=== PATIENT | female | born 1965 | race Hispanic/Latino ===

== ENCOUNTER 2021-06-10 14:50 | Emergency (ER) | payer MEDICARE ==
[2021-06-10 15:03] VITALS: BP 141/92
--- NOTE | 2021-06-10 15:24 | Emergency Department Report ---
ED Abdominal Pain HPI - General Chief Complaint: Abdominal Pain Stated Complaint: ABDOMINAL PAIN Time Seen by Provider: 06/10/21 15:17 Source: patient Mode of arrival: Ambulatory Limitations: No Limitations - History of Present Illness Initial Comments: This is a pleasant 55-year-old female who presents to the emergency department chief complaint of right upper quadrant abdominal pain with associated nausea and vomiting that has been present intermittently for the past 8 years. She reports she has been seen by her primary care doctor and had a CT scan in the past was apparently unremarkable. She has a surgical history of a cholecystectomy. She also has a history of hypertension, hyperlipidemia and diabetes. She reports the pain will radiate into her back and to the right lower chest. She has associated fever, chills, night sweats, headache, dizziness, blurry vision, hematemesis, melena, hematochezia diarrhea, weakness or any other associated symptoms. - Related Data Previous Rx's Medication Instructions Recorded Last Taken Type Acetaminophen/Codeine [Tylenol 1 tab PO Q6H PRN #12 tab 06/10/21 Unknown Rx /Codeine # 3 tab] Ciprofloxacin HCl 500 mg PO BID #20 tablet 06/10/21 Unknown Rx Promethazine [Phenergan SUPPOS] 25 mg UT Q6HR PRN #20 supp.rect 06/10/21 Unknown Rx metroNIDAZOLE [Flagyl] 500 mg PO Q8HR #30 tablet 06/10/21 Unknown Rx Allergies Allergy/AdvReac Type Severity Reaction Status Date / Time Penicillins Allergy Severe Swelling Verified 06/10/21 15:33 ED Review of Systems ROS: Stated complaint: ABDOMINAL PAIN Other details as noted in HPI Comment: All other systems reviewed and negative Constitutional: denies: chills, fever Eyes: denies: eye pain, eye discharge, vision change ENT: denies: ear pain, throat pain Respiratory: denies: cough, shortness of breath, wheezing Cardiovascular: as per HPI, chest pain. denies: palpitations Endocrine: no symptoms reported Gastrointestinal: as per HPI, abdominal pain, nausea, vomiting. denies: diarrhea Genitourinary: denies: urgency, dysuria, discharge Musculoskeletal: denies: back pain, joint swelling, arthralgia Skin: denies: rash, lesions Neurological: denies: headache, weakness, paresthesias Psychiatric: denies: anxiety, depression Hematological/Lymphatic: denies: easy bleeding, easy bruising ED Past Medical Hx - Past Medical History Previous Medical History?: Yes Hx Hypertension: Yes Hx Diabetes: Yes Additional medical history: Thyroid - Medications Home Medications: Home Medications Medication Instructions Recorded Confirmed Last Taken Type Acetaminophen/Codeine [Tylenol 1 tab PO Q6H PRN #12 tab 06/10/21 Unknown Rx /Codeine # 3 tab] Ciprofloxacin HCl 500 mg PO BID #20 tablet 06/10/21 Unknown Rx Promethazine [Phenergan SUPPOS] 25 mg UT Q6HR PRN #20 supp.rect 06/10/21 Unknown Rx metroNIDAZOLE [Flagyl] 500 mg PO Q8HR #30 tablet 06/10/21 Unknown Rx ED Physical Exam - General Limitations: No Limitations General appearance: alert, in no apparent distress - Head Head exam: Present: atraumatic, normocephalic - Eye Eye exam: Present: normal appearance, PERRL, EOMI Pupils: Present: normal accommodation - ENT ENT exam: Present: normal exam, normal orophraynx, mucous membranes moist - Neck Neck exam: Present: normal inspection, full ROM. Absent: tenderness, meningismus - Respiratory Respiratory exam: Present: normal lung sounds bilaterally. Absent: respiratory distress, wheezes, rales, rhonchi, stridor - Cardiovascular Cardiovascular Exam: Present: normal rhythm, tachycardia, normal heart sounds. Absent: systolic murmur, diastolic murmur, rubs, gallop - GI/Abdominal GI/Abdominal exam: Present: soft, tenderness (Tenderness to right upper quadrant, right lower quadrant and left lower quadrant, no rebound or guarding), normal bowel sounds. Absent: distended, guarding, rebound - Extremities Exam Extremities exam: Present: normal inspection, full ROM, normal capillary refill. Absent: tenderness, calf tenderness - Back Exam Back exam: Present: normal inspection, full ROM. Absent: tenderness, CVA tenderness (R), CVA tenderness (L) - Neurological Exam Neurological exam: Present: alert, oriented X3, normal gait - Psychiatric Psychiatric exam: Present: normal affect, normal mood - Skin Skin exam: Present: warm, dry, intact, normal color. Absent: rash ED Course Vital Signs 06/10/21 15:03 Temperature 98.1 F Pulse Rate 114 H Respiratory 24 Rate Blood Pressure 141/92 [Right] O2 Sat by Pulse 94 Oximetry ED Medical Decision Making - Lab Data Result diagrams: 06/10/21 15:26 06/10/21 15:26 Lab Results 06/10/21 06/10/21 06/10/21 Range/Units 15:26 15:26 15:26 WBC 4.7 (4.5-11.0) K/mm3 RBC 4.65 (3.65-5.03) M/mm3 Hgb 13.0 (10.1-14.3) gm/dl Hct 40.2 (30.3-42.9) % MCV 86 (79-97) fl MCH 28 (28-32) pg MCHC 32 (30-34) % RDW 15.9 H (13.2-15.2) % Plt Count 101 L (140-440) K/mm3 Lymph % (Auto) 32.0 (13.4-35.0) % [place]lan % (Auto) 7.8 H (0.0-7.3) % Eos % (Auto) 0.8 (0.0-4.3) % Baso % (Auto) 0.7 (0.0-1.8) % Lymph # (Auto) 1.5 (1.2-5.4) K/mm3 [place]lan # (Auto) 0.4 (0.0-0.8) K/mm3 Eos # (Auto) 0.0 (0.0-0.4) K/mm3 Baso # (Auto) 0.0 (0.0-0.1) K/mm3 Seg Neutrophils % 58.7 (40.0-70.0) % Seg Neutrophils # 2.8 (1.8-7.7) K/mm3 PT 15.6 H (12.2-14.9) Sec. INR 1.12 (0.87-1.13) APTT 32.0 (24.2-36.6) Sec. D-Dimer 264.67 H (0-234) ng/mlDDU Sodium 134 L (137-145) mmol/L Potassium 3.8 (3.6-5.0) mmol/L Chloride 96.9 L (98-107) mmol/L Carbon Dioxide 21 L (22-30) mmol/L Anion Gap 20 mmol/L BUN 20 H (7-17) mg/dL Creatinine 0.7 (0.6-1.2) mg/dL Estimated GFR > 60 ml/min BUN/Creatinine Ratio 29 % Glucose 371 H (65-100) mg/dL Calcium 9.2 (8.4-10.2) mg/dL Total Bilirubin 1.80 H (0.1-1.2) mg/dL AST 29 (5-40) units/L ALT 20 (7-56) units/L Alkaline Phosphatase 114 (35-129) units/L Troponin T < 0.010 (0.00-0.029) ng/mL Total Protein 8.4 H (6.3-8.2) g/dL Albumin 4.1 (3.9-5) g/dL Albumin/Globulin Ratio 1.0 % Lipase 19 (13-60) units/L Urine Color (Yellow) Urine Turbidity (Clear) Urine pH (5.0-7.0) Ur Specific [place] (1.003-1.030) Urine Protein (Negative) mg/dL Urine Glucose (UA) (Negative) mg/dL Urine Ketones (Negative) mg/dL Urine Blood (Negative) Urine Nitrite (Negative) Urine Bilirubin (Negative) Urine Urobilinogen (<2.0) mg/dL Ur Leukocyte Esterase (Negative) Urine WBC (Auto) (0.0-6.0) /HPF Urine RBC (Auto) (0.0-6.0) /HPF U Epithel Cells (Auto) (0-13.0) /HPF Urine Bacteria (Auto) (Negative) /HPF Hyaline Casts /LPF Urine Mucus /HPF 06/10/21 Range/Units Unknown WBC (4.5-11.0) K/mm3 RBC (3.65-5.03) M/mm3 Hgb (10.1-14.3) gm/dl Hct (30.3-42.9) % MCV (79-97) fl MCH (28-32) pg MCHC (30-34) % RDW (13.2-15.2) % Plt Count (140-440) K/mm3 Lymph % (Auto) (13.4-35.0) % Harlan % (Auto) (0.0-7.3) % Eos % (Auto) (0.0-4.3) % Baso % (Auto) (0.0-1.8) % Lymph # (Auto) (1.2-5.4) K/mm3 [place] # (Auto) (0.0-0.8) K/mm3 Eos # (Auto) (0.0-0.4) K/mm3 Baso # (Auto) (0.0-0.1) K/mm3 Seg Neutrophils % (40.0-70.0) % Seg Neutrophils # (1.8-7.7) K/mm3 PT (12.2-14.9) Sec. INR (0.87-1.13) APTT (24.2-36.6) Sec. D-Dimer (0-234) ng/mlDDU Sodium (137-145) mmol/L Potassium (3.6-5.0) mmol/L Chloride (98-107) mmol/L Carbon Dioxide (22-30) mmol/L Anion Gap mmol/L BUN (7-17) mg/dL Creatinine (0.6-1.2) mg/dL Estimated GFR ml/min BUN/Creatinine Ratio % Glucose (65-100) mg/dL Calcium (8.4-10.2) mg/dL Total Bilirubin (0.1-1.2) mg/dL AST (5-40) units/L ALT (7-56) units/L Alkaline Phosphatase (35-129) units/L Troponin T (0.00-0.029) ng/mL Total Protein (6.3-8.2) g/dL Albumin (3.9-5) g/dL Albumin/Globulin Ratio % Lipase (13-60) units/L Urine Color [place] (Yellow) Urine Turbidity Clear (Clear) Urine pH 5.0 (5.0-7.0) Ur Specific [place] 1.030 (1.003-1.030) Urine Protein 100 mg/dl (Negative) mg/dL Urine Glucose (UA) >=500 (Negative) mg/dL Urine Ketones 20 (Negative) mg/dL Urine Blood Neg (Negative) Urine Nitrite Neg (Negative) Urine Bilirubin Neg (Negative) Urine Urobilinogen 4.0 (<2.0) mg/dL Ur Leukocyte Esterase Neg (Negative) Urine WBC (Auto) 2.0 (0.0-6.0) /HPF Urine RBC (Auto) 2.0 (0.0-6.0) /HPF U Epithel Cells (Auto) 6.0 (0-13.0) /HPF Urine Bacteria (Auto) 1+ (Negative) /HPF Hyaline Casts 1 /LPF Urine Mucus 2+ /HPF - EKG Data -: EKG Interpreted by Dc EKG shows normal: sinus rhythm (Ventricular paced) Rate: tachycardia - EKG Data When compared to previous EKG there are: previous EKG unavailable Interpretation: other (No acute ST or T wave endometritis, no STEMI, normal axis, normal intervals.) - Radiology Data Radiology results: report reviewed, image reviewed Ordering Physician: HARRY PAREDES Date of Service: 06/10/21 Procedure(s): CT abdomen pelvis w con Accession Number(s): [id number] cc: HARRY PAREDES CTA CHEST WITH CONTRAST INDICATION / CLINICAL INFORMATION: pleuritic chest pain, SOB, elevated d-dimer. TECHNIQUE: Axial CT images were obtained through the chest after injection of 100 cc of Omnipaque 350 IV contrast. 3 plane MIP and/or 3D reconstructions were produced. All CT scans at this location are performed using CT dose reduction for ALARA by means of automated exposure control. COMPARISON: None available. FINDINGS: PULMONARY ARTERIES: No central pulmonary embolism THORACIC AORTA: No significant abnormality. HEART: No significant abnormality. CORONARY ARTERY CALCIFICATION: None. MEDIASTINUM / LOVELY: No significant abnormality. PLEURA: No pleural effusion. No pneumothorax. LUNGS: No acute air space or interstitial disease. Scattered subsegmental atelectasis versus scarring. ADDITIONAL FINDINGS: None. SKELETAL STRUCTURES: No significant osseous abnormality. IMPRESSION: 1. No CT evidence for central pulmonary embolism. 2. No acute findings. CT ABDOMEN AND PELVIS WITH CONTRAST INDICATION / CLINICAL INFORMATION: pleuritic chest pain, SOB, elevated d-dimer. TECHNIQUE: Axial CT images were obtained through the abdomen and pelvis after 100 cc of Omnipaque [address] scans at this location are performed using CT dose reduction for ALARA by means of automated exposure control. COMPARISON: None available. FINDINGS: AORTA / ARTERIES: No significant abnormality. IVC / VEINS: No significant abnormality. LYMPH NODES: No significant adenopathy. COLON: No significant abnormality. APPENDIX: Not visualized. STOMACH / SMALL BOWEL: No significant abnormality. PERITONEUM: No free fluid. Along the right paracolic gutter there is induration of the mesenteric fat. No free air. No fluid collection. LIVER: Mild heterogeneity to the parenchymal attenuation. GALLBLADDER: Cholecystectomy. BILE DUCTS: No significant abnormality. PANCREAS: No significant abnormality. SPLEEN: No significant abnormality. ADRENALS: No significant abnormality. RIGHT KIDNEY / URETER: Subcentimeter hypoattenuating lesion which is too small to completely characterize but statistically likely represents a simple renal cyst. LEFT KIDNEY / URETER: Nonobstructing 7 mm stone within the left kidney. Subcentimeter hypoattenuating lesion which is too small to completely characterize but statistically likely represents a simple renal cyst. URINARY BLADDER: No significant abnormality. REPRODUCTIVE ORGANS: Uterus is absent. No significant adnexal abnormality. SKELETAL SYSTEM: No significant abnormality. ADDITIONAL FINDINGS: None. IMPRESSION: 1. Mild fatty induration along the right paracolic gutter which is likely se quela of infectious versus inflammatory colitis Signer Name: Silas Guillen DO Signed: 06/10/2021 8:10 PM Workstation Name: [id number] Transcribed By: VANESSA Dictated By: SILAS GUILLEN DO Electronically Authenticated By: SILAS GUILLEN DO Signed Date/Time: 06/10/212009 - Medical Decision Making Patient nontoxic no acute distress. Her lab work returned relatively normal with an hyperglycemia and pseudohyponatremia. CT scan of the chest showed no pulmonary embolism or other acute process. EKG was unremarkable and troponin was negative x2. The patient had a CT of the abdomen that showed colitis in the right upper quadrant which likely source the patient's pain. We will treat her with Cipro, Flagyl, pain medication, antiemetics and recommend outpatient follow-up with her GI doctor. Recommend she return the [facility] change worsening symptoms. She verbalized understand the diagnosis, treatment plan and follow-up instructions all of her questions were answered. - Differential Diagnosis colitis, atypical ACS, PE Critical care attestation.: If time is entered above; I have spent that time in minutes in the direct care of this critically ill patient, excluding procedure time. ED Disposition Clinical Impression: Colitis Disposition: 01 HOME / SELF CARE / HOMELESS Is pt being admited?: No Condition: Stable Instructions: Abdominal Pain (ED), Colitis Prescriptions: Ciprofloxacin HCl 500 mg PO BID #20 tablet metroNIDAZOLE [Flagyl] 500 mg PO Q8HR #30 tablet Promethazine [Phenergan SUPPOS] 25 mg UT Q6HR PRN #20 supp.rect PRN Reason: Nausea Acetaminophen/Codeine [Tylenol /Codeine # 3 tab] 1 tab PO Q6H PRN #12 tab PRN Reason: Pain , Severe (7-10) Referrals: PRIMARY CARE, [Primary Care Provider] - 3-5 Days [facility] [Provider Group] - 3-5 Days Forms: Work/School Release Form(ED) Time of Disposition: 20:36
[2021-06-10 15:38] LABS: Basophils % (Auto) 0.7 % (0.0-1.8); Eosinophils % (Auto) 0.8 % (0.0-4.3); Hematocrit 40.2 % (30.3-42.9); Lymphocytes # (Auto) 1.5 K/mm3 (1.2-5.4); Mean Corpuscular HGB Conc 32 % (30-34); Mean Corpuscular Volume 86 fl (79-97); Monocytes # (Auto) 0.4 K/mm3 (0.0-0.8); Monocytes % (Auto) 7.8 % (0.0-7.3); Platelet Count 101 K/mm3 (140-440); Red Blood Count 4.65 M/mm3 (3.65-5.03); Red Cell Distribution Width 15.9 % (13.2-15.2)
[2021-06-10 15:49] LABS: INR 1.12 (0.87-1.13)
[2021-06-10 16:00] LABS: Alanine Aminotransferase 20 units/L (7-56); Albumin 4.1 g/dL (3.9-5); Blood Urea Nitrogen 20 mg/dL (7-17); Calcium 9.2 mg/dL (8.4-10.2); Hemolysis Index 9
--- NOTE | 2021-06-10 16:16 | XRay Report ---
CHEST 2 VIEWS INDICATION / CLINICAL INFORMATION: Chest Pain. COMPARISON: None available. FINDINGS: SUPPORT DEVICES: None. HEART / MEDIASTINUM: No significant abnormality. LUNGS / PLEURA: No acute airspace disease. Linear atelectasis versus scarring in the right lung base. No pneumothorax. ADDITIONAL FINDINGS: No significant additional findings. IMPRESSION: 1. Right basilar atelectasis versus scarring. Signer Name: Thomas Rachel MD Signed: 06/10/2021 4:11 PM Workstation Name: [email or web address]
[2021-06-10 16:40] LABS: BUN/Creatinine Ratio 29
[2021-06-10 18:49] LABS: Bacteria,Urine 1+ /HPF (Negative); Bilirubin,Urine NEG (Negative); Blood,Urine NEG (Negative); Color,Urine Amber (Yellow); Hyaline Casts,Urine 1 /LPF; Mucus,Urine 2+ /HPF
--- NOTE | 2021-06-10 20:14 | Cat Scan Report ---
CTA CHEST WITH CONTRAST INDICATION / CLINICAL INFORMATION: pleuritic chest pain, SOB, elevated d-dimer. TECHNIQUE: Axial CT images were obtained through the chest after injection of 100 cc of Omnipaque 350 IV contrast. 3 plane MIP and/or 3D reconstructions were produced. All CT scans at this location are performed using CT dose reduction for ALARA by means of automated exposure control. COMPARISON: None available. FINDINGS: PULMONARY ARTERIES: No central pulmonary embolism THORACIC AORTA: No significant abnormality. HEART: No significant abnormality. CORONARY ARTERY CALCIFICATION: None. MEDIASTINUM / LOVELY: No significant abnormality. PLEURA: No pleural effusion. No pneumothorax. LUNGS: No acute air space or interstitial disease. Scattered subsegmental atelectasis versus scarring . ADDITIONAL FINDINGS: None. SKELETAL STRUCTURES: No significant osseous abnormality. IMPRESSION: 1. No CT evidence for central pulmonary embolism. 2. No acute findings. CT ABDOMEN AND PELVIS WITH CONTRAST INDICATION / CLINICAL INFORMATION: pleuritic chest pain, SOB, elevated d-dimer. TECHNIQUE: Axial CT images were obtained through the abdomen and pelvis after 100 cc of Omnipaque [address] scans at this location are performed using CT dose reduction for ALARA by means of automated exposure control. COMPARISON: None available. FINDINGS: AORTA / ARTERIES: No significant abnormality. IVC / VEINS: No significant abnormality. LYMPH NODES: No significant adenopathy. COLON: No significant abnormality. APPENDIX: Not visualized. STOMACH / SMALL BOWEL: No significant abnormality. PERITONEUM: No free fluid. Along the right paracolic gutter there is induration of the mesenteric fat . No free air. No fluid collection. LIVER: Mild heterogeneity to the parenchymal attenuation. GALLBLADDER: Cholecystectomy. BILE DUCTS: No significant abnormality. PANCREAS: No significant abnormality. SPLEEN: No significant abnormality. ADRENALS: No significant abnormality. RIGHT KIDNEY / URETER: Subcentimeter hypoattenuating lesion which is too small to completely characte rize but statistically likely represents a simple renal cyst. LEFT KIDNEY / URETER: Nonobstructing 7 mm stone within the left kidney. Subcentimeter hypoattenuating lesion which is too small to completely characterize but statistically likely represents a simple re nal cyst. URINARY BLADDER: No significant abnormality. REPRODUCTIVE ORGANS: Uterus is absent. No significant adnexal abnormality. SKELETAL SYSTEM: No significant abnormality. ADDITIONAL FINDINGS: None. IMPRESSION: 1. Mild fatty induration along the right paracolic gutter which is likely sequela of infectious versu s inflammatory colitis Signer Name: Silas Guillen DO Signed: 06/10/2021 8:10 PM Workstation Name: [id number]
[2021-06-10] MEDS ORDERED: SODIUM CHLORIDE 0.9% 1000 ML 1,000 ML IV ONE (20:35)
[2021-06-10] MEDS ORDERED: ONDANSETRON 4 MG/2 ML INJ IV ONE (20:35)
[2021-06-10] MEDS ORDERED: KETOROLAC 30 MG/1 ML INJ IV ONE (20:35)
--- NOTE | 2021-06-12 12:05 | Electrocardiograph Report ---
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
== END 2021-06-10 21:32 | disposition home or self-care (01) ==
LOC: ED 14:50
DX: K52.9 Noninfective gastroenteritis and colitis, unspecified (principal); I10 Essential (primary) hypertension; E11.8 Type 2 diabetes mellitus with unspecified complications
CPT/HCPCS: 36415; 71046; 71275; 74177; 80053; 81001; 83690; 84484; 85025; 85379; 85610; 85730; 93005; 96374; 96375; 99284; J1885; J2405; J7030; Q9967; Q0162